=== PATIENT | female | born 1995 | race Caucasian/White ===

== ENCOUNTER 2016-11-14 08:34 | Emergency (ER) | payer BC ==
[2016-11-14 09:27] VITALS: BP 134/77
[2016-11-14] MEDS ORDERED: Cephalexin CAP* 500 MG PO ONE (09:48)
--- NOTE | 2016-11-14 09:56 | UC ---
Complaint Female HPI - HPI Summary HPI Summary: 20 yo female with about a day hx of dysuria/urgenvy and frequency no fever has had chills and nausea denies vag d/c or itch - History Of Current Complaint Chief Complaint: UCGU Stated Complaint: URINARY Time Seen by Provider: 11/14/16 09:27 Hx Obtained From: Patient Hx Last Menstrual Period: 11/10/16, AT THE END OF HER PERIOD NOW Onset/Duration: Gradual Onset, Lasting Hours Timing: Constant Severity Initially: Mild Severity Currently: Mild Pain Intensity: 3 Pain Scale Used: 0-10 Numeric Character: Burning Aggravating Factor(s): Urination Associated Signs And Symptoms: Positive: Back Pain - chronic complaint, Nausea. Negative: Vaginal Discharge, Vomiting(# Of Episodes =), Genital Swelling, Genital Blisters, Retained Foregin Body (Specify) - Allergies/Home Medications Allergies/Adverse Reactions: Allergies Allergy/AdvReac Type Severity Reaction Status Date / Time Sulfa Antibiotics Allergy Unknown Unknown Verified 11/14/16 09:19 Reaction Details Home Medications: Home Medications Phenazopyridine HCl [Azo Urinary Pain Relief] 95 mg PO Q8H PRN 11/14/16 [ History Confirmed 11/14/16] PMH/Surg Hx/FS Hx/Imm Hx Previously Healthy: Yes - Surgical History Surgical History: None - Family History Known Family History: Positive: Hypertension - Social History Alcohol Use: Rare Substance Use Type: None Smoking Status (MU): Never Smoked Tobacco Review of Systems Constitutional: Negative Skin: Negative Eyes: Negative ENT: Negative Respiratory: Negative Cardiovascular: Negative Gastrointestinal: Negative Genitourinary: Dysuria, Frequency, Urgency Motor: Negative Neurovascular: Negative Musculoskeletal: Negative Neurological: Negative Psychological: Negative All Other Systems Reviewed And Are Negative: Yes Physical Exam Triage Information Reviewed: Yes Appearance: Well-Appearing, No Pain Distress, Well-Nourished Vital Signs: Initial Vital Signs Temp 97.8 F 11/14/16 09:21 Pulse 75 11/14/16 09:21 Resp 18 11/14/16 09:21 BP 134/77 11/14/16 09:21 Pulse Ox 100 11/14/16 09:21 Vital Signs Reviewed: Yes Eyes: Positive: Conjunctiva Inflamed ENT: Positive: Normal ENT inspection. Negative: Nasal congestion, Nasal drainage, Trismus, Muffled/hoarse voice Neck: Positive: Supple, Nontender Respiratory: Positive: Lungs clear, Normal breath sounds, No respiratory distress, No accessory muscle use Cardiovascular: Positive: RRR, No Murmur Abdomen Description: Positive: Nontender, No Organomegaly. Negative: CVA Tenderness (R), CVA Tenderness (L) Musculoskeletal: Positive: Strength Intact, ROM Intact Neurological: Positive: Alert Psychological Exam: Normal Skin Exam: Normal Complaint Female Dx - Differential Dx/Diagnosis Provider Diagnoses: dysuria. suspect UTI Discharge - Discharge Plan Condition: Stable Disposition: HOME Prescriptions: Cephalexin CAP* [Keflex CAP*] 500 mg PO BID #[id number] Patient Education Materials: Urinary Tract Infection in Women (ED) Additional Instructions: recheck in 2-3 days if not better return for new or worsening symptoms
== END 2016-11-14 10:00 | disposition home or self-care (01) ==
LOC: UCCORT 08:34
DX: R30.0 Dysuria (principal); Z88.2 Allergy status to sulfonamides
CPT/HCPCS: 87077; 87086; 99202; A9270-GY; G0463